=== PATIENT | female | born 1955 | race Caucasian/White ===

== ENCOUNTER 2018-12-03 10:11 | Observation (INO) | payer BC, OTHER ==
[2018-12-03] MEDS ORDERED: ALBUTEROL SO4 2.5/IPRATROPIUM 0.5 INH SOL 3 ML VIAL.NEB. NEB ONE ×4 (10:32→14:48)
--- NOTE | 2018-12-03 10:49 | PDOC ---
History of Present Illness - General Chief Complaint: Respiratory Distress Stated Complaint: ASTHMA Time Seen by Provider: 12/03/18 10:28 - History of Present Illness Initial Comments: 12/03/18 10:43 Patient is a 63 y/o female with a history of rheumatoid arthritis ( not on medication), asthma, and seasonal allergies who presents for cough and SOB. She started having a cough and a little bit of pain in her throat on . She also had a headache and a lot of sinus pressure. She describes it as a dry cough , She took ibuprofen but without relief. She denies any sick contacts. She was changing her cats litter box today before her shortness of breath worsened. She denies fevers, chills, nausea, vomiting, diarrhea, or chest pain. Patient has been menopausal for ten years. States her prednisone allergy causes her to have shortness of breath and trouble breathing. Past History - Past Medical History Allergies/Adverse Reactions: Allergies Allergy/AdvReac Type Severity Reaction Status Date / Time animal dander Allergy Verified 12/03/18 10:20 Penicillins Allergy Verified 12/03/18 10:20 prednisone Allergy Verified 12/03/18 10:20 Home Medications: Ambulatory Orders Albuterol Sulfate Inhaler - [Ventolin HFA Inhaler -] 1 - 2 inh PO Q4H PRN #1 inhaler 12/04/18 Methylprednisolone [Medrol Dose Foreign] 4 mg PO ASDIR #21 tablet 12/04/18 Montelukast Na [Singulair -] 10 mg PO HS #30 tablet 12/04/18 Cancer: Yes (breast 2004) - Suicide/Smoking/Psychosocial Hx Smoking History: Former smoker Have you smoked in the past 12 months: No If you are a former smoker, when did you quit?: 2006 Information on smoking cessation initiated: No Review of Systems - Review of Systems Constitutional: No: Chills, Fever Respiratory: Yes: Cough, Shortness of Breath Cardiac (ROS): No: Chest Pain ABD/GI: No: Constipated, Diarrhea, Nausea *Physical Exam - Vital Signs Last Vital Signs Temp Pulse Resp BP Pulse Ox 99 F 123 H 26 H 126/85 90 L 12/03/18 10:26 12/03/18 10:26 12/03/18 10:26 12/03/18 10:26 12/03/18 10:26 - Physical Exam Comments: 12/03/18 10:47 GENERAL: A& O x3, no acute distress HEART: RRR, no murmurs, rubs or gallops LUNGS: CTAL B/L, no accessory muscle use, no rhonchi, or rubs ABDMOEN: soft, non tender, non distended EXTEMITIES: no pitting edema SKIN: no ulcers or rashes noted ED Treatment Course - LABORATORY CBC & Chemistry Diagram: 12/04/18 07:00 12/04/18 07:00 - RADIOLOGY Radiology Studies Ordered: Category Date Time Status CHEST PA & LAT [RAD] Stat Radiology 12/03/18 10:40 Ordered Medical Decision Making - Medical Decision Making 12/03/18 10:55 f/u labs, CXR albuterol nebulizer treatment Wells score 1.5 low risk, f/u ddime, tachy at 118 12/03/18 13:29 CTA: no evidence of PE, symptomatically improved labs WNL likely asthma exacerbation 12/03/18 13:52 pulse 112, O2 93% another duonebs, Mg 1 gm, 1 L NS 40 kdur to replace K 12/03/18 15:51 pulse continues > 115, O2 93% still symptomatic, hypoxic *DC/Admit/Observation/Transfer Diagnosis at time of Disposition: Respiratory distress - Discharge Dispostion Disposition: HOME Condition at time of disposition: Stable Decision to Admit order: Yes - Referrals - Patient Instructions - Post Discharge Activity
[2018-12-03] MEDS ORDERED: SODIUM CHLORIDE 0.9% 1000 ML INFUS.BAG IV ONE (10:50)
[2018-12-03] MEDS ORDERED: ACETAMINOPHEN 325 MG TABLET (FP) PO ONE (10:52)
--- NOTE | 2018-12-03 11:12 | PDOC ---
Attending Attestation - HPI HPI: This patient is a 63 year old female, with PMHx of rheumatoid arthritis, asthma , seasonal and cat allergies, who presents with 2 days of cough, sinus pressure , itchy throat, and headache. Patient states that she has taken ibuprofen and marjorie seltzer without relief. Today she states that she changed her cats litter box and felt short of breath, with associated dry cough, sinus pressure and headache. Patient states that she took her albuterol inhaler which didn't help. She did not take anything for her seasonal allergies. Denies any fever, chills, nausea, vomiting, chest pain, nasal congestion. - Physicial Exam PE: GENERAL: Awake, alert, and fully oriented, in respiratory distress. HEAD: No signs of trauma EYES: PERRLA, EOMI, sclera anicteric, conjunctiva clear ENT: Auricles normal inspection, hearing grossly normal, nares patent, oropharynx clear without exudates. Moist mucosa NECK: Normal ROM, supple, no lymphadenopathy, JVD, or masses LUNGS: Conversational dyspnea. Hypoxic. Brochospastic cough. Clear to auscultation bilaterally. No wheezes, and no crackles HEART: Tachycardic, no murmurs, rubs or gallops. ABDOMEN: Soft, nontender, normoactive bowel sounds. No guarding, no rebound. No masses EXTREMITIES: Normal range of motion, no edema. No clubbing or cyanosis. No cords, erythema, or tenderness NEUROLOGICAL: Cranial nerves II through XII grossly intact. SKIN: Warm, Dry, normal turgor, no rashes or lesions noted. <Krista Singleton - Last Filed: 12/03/18 12:21> - Resident Resident Name: Nancy Argueta - ED Attending Attestation I have performed the following: I have examined & evaluated the patient, The case was reviewed & discussed with the resident, I agree w/resident's findings & plan, Exceptions are as noted - Critical Care Time Total Critical Care Time: 35 Critical Care Statement: The care of this patient involved high complexity decision making to prevent further life threatening deterioration of the patient 's condition and/or to evaluate & treat vital organ system(s) failure or risk of failure. - Medical Decision Making 12/03/18 11:11 I, Dr. Doretha Parry, DO, attest that this document has been prepared under my direction and personally reviewed by me in its entirety. I further attest, that it accurately reflects all work, treatment, procedures and medical decision -making performed by me. 12/03/18 11:37 a/p: 63yo female with sob and palpitations -cough x 2 days -has been in the hospital with her who is being treated for a bowel obstruction -no fevers -sinus congestion -pt arrives with conversational dyspnea, tachycardia -no leg swelling -no PE risk factors, but tachy and hypoxic to 90RA -started on a neb treatment prior to my eval -denies cp -will send labs, ekg, cxr, dimer -will monitor and reassess 12/03/18 11:49 cxr clear dimer elevated will obtain cta chest 12/03/18 13:01 flu negative 12/03/18 13:49 no PE on cta no pna 12/03/18 16:07 pt with persistent tachycardia and resp distress pt is allergic to prednisone case discussed with Dr. Munoz who accepts pt to service for obs <Doretha Parry - Last Filed: 12/03/18 16:13> Heart Score/ECG Review - ECG Intrepretation Comment:: 12/03/18 13:49 sinus tach at 111, nl axis, nl interval, no acute st/t wave findings <Doretha Parry - Last Filed: 12/03/18 16:13>
[2018-12-03 11:26] LABS: HEMATOCRIT 38.9 % (32.4-45.2); MCH 31.6 pg (25.7-33.7); MCHC 33.3 g/dl (32.0-36.0); MEAN CELL VOLUME 94.9 fl (80-96); MEAN PLT VOLUME 8.7 fl (7.5-11.1); PLATELET COUNT 231 K/MM3 (134-434); RDW 12.9 % (11.6-15.6); WHITE BLOOD COUNT 6.5 K/mm3 (4.0-10.0)
[2018-12-03] MEDS ORDERED: ACETAMINOPHEN 325 MG TABLET (FP) ONE (11:59)
[2018-12-03 12:07] LABS: ALBUMIN 4.1 g/dl (3.4-5.0); ALK PHOS 98 U/L (45-117); ANION GAP 10 MMOL/L (8-16); BILIRUBIN,TOTAL 0.3 mg/dL (0.2-1); BLOOD UREA NITROGEN 9 mg/dL (7-18); CALCIUM 8.6 mg/dL (8.5-10.1); CHLORIDE 103 mmol/L (98-107); CO2 28 mmol/L (21-32); CREATININE 0.5 mg/dL (0.55-1.3); GLUCOSE,RANDOM 127 mg/dL (74-106); POTASSIUM 3.2 mmol/L (3.5-5.1); SGOT/AST 47 U/L (15-37); SGPT/ALT 53 U/L (13-61); SODIUM 141 mmol/L (136-145)
[2018-12-03] MEDS ORDERED: POTASSIUM CHLORIDE TABS 20 MEQ TABLET.ER (FP) PO ONE (13:30)
[2018-12-03] MEDS ORDERED: POTASSIUM CHLORIDE ORAL LIQUID 20 MEQ/15 ML PO ONE (13:36)
[2018-12-03] MEDS ORDERED: SODIUM CHLORIDE 1,000 ML IV STA (13:50)
[2018-12-03] MEDS ORDERED: MAGNESIUM SULF 50% (8.12 MEQ/2 ML-1 GM VIAL) IVPB ONE (13:51)
[2018-12-03] MEDS ORDERED: MAGNESIUM 1GM/D5W - 1 GM/100 ML IVPB IVPB ONE (14:00)
[2018-12-03] MEDS ORDERED: POTASSIUM CHLORIDE ORAL LIQUID 20 MEQ/15 ML ONE (14:00)
[2018-12-03] MEDS ORDERED: methylPREDNISolone NA SUCC 125 MG/2 ML VIAL IVPUSH ONE (16:26)
[2018-12-03] MEDS ORDERED: ONDANSETRON 4 MG/2 ML VIAL IVPUSH PRN (16:31)
[2018-12-03] MEDS ORDERED: ALBUTEROL SO4 0.083% IH SOL 2.5 MG/3 ML VIAL.NEB. NEB PRN (16:35)
--- NOTE | 2018-12-03 16:36 | HP ---
CHIEF COMPLAINT: shortness of breath HISTORY OF PRESENT ILLNESS: 63 yof with PMhx of Mild asthma, last exacerbation in 2016, never intubated, seasonal allergies, allergic to cat/animal dander, though has a cat, Rheumatoid arthritis (Not on treatment, was on methotrexate years ago), Right Breast cancer 2004 s/p lumpectomy/radiation, in remission, has been having URI like symptoms for last 4-5 days with runny nose, sore throat, nasal congestion. Her is currently admitted in the hospital and feels might have had sick contacts in the hospital. No Influenza vaccination. Over the last 2 days, she has been getting progressively short of breath. Yesterday went out to clear cat litter box when her breathing got worse, was unable to catch her breath or sleep all night, so came to the ED. 12 point ROS done, neg for fevers, chills, sputum, chest pain, palpitations, orthopnea, PND, leg swelling, abdominal or urinary symptoms. s/p albuterol nebs, magnesium in the ED. Patient feels overall the same. Reports allergy to prednisone, when asked in detail, states was prescribed prednisone 7 years ago for asthma exacerbation, when took the prednisone, went for a shower when felt was unable to breathe and attributed it to the prednsione. Prior asthma exacerbations per patient, but does not know if has been treated with steroids. 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 lives with independent in ADLs Family History: Prostate Ca in father Allergies animal dander Allergy (Verified 12/03/18 10:20) Penicillins Allergy (Verified 12/03/18 10:20) prednisone Allergy (Verified 12/03/18 10:20) HOME MEDICATIONS: Home Medications Medication Instructions Recorded Albuterol Sulfate Inhaler - 1 - 2 inh PO Q4H PRN #1 inhaler 08/29/16 [Ventolin HFA Inhaler -] REVIEW OF SYSTEMS CONSTITUTIONAL: Present: loss of appetite Absent: fever, chills, diaphoresis, generalized weakness, malaise, weight change HEENT: Present: rhinorrhea, nasal congestion, throat pain, which is resolving now Absent: throat swelling, difficulty swallowing, mouth swelling, ear pain, eye pain, visual changes CARDIOVASCULAR: Absent: chest pain, syncope, palpitations, irregular heart rate, lightheadedness , peripheral edema RESPIRATORY: Present: cough, shortness of breath, wheezing Absent:dyspnea with exertion, orthopnea, stridor, hemoptysis GASTROINTESTINAL: Absent: abdominal pain, abdominal distension, nausea, vomiting, diarrhea, constipation, melena, hematochezia GENITOURINARY: Absent: dysuria, frequency, urgency, hesitancy, hematuria, flank pain, genital pain MUSCULOSKELETAL: Present: occasional arthlagia from her RA Absent: Joint swelling, back pain, neck pain SKIN: Absent: rash, itching, pallor HEMATOLOGIC/IMMUNOLOGIC: Absent: easy bleeding, easy bruising, lymphadenopathy, frequent infections ENDOCRINE: Absent: unexplained weight gain, unexplained weight loss, heat intolerance, cold intolerance NEUROLOGIC: Absent: headache, focal weakness or paresthesias, dizziness, unsteady gait, seizure, mental status changes, bladder or bowel incontinence PSYCHIATRIC: Absent: anxiety, depression, suicidal or homicidal ideation, hallucinations. PHYSICAL EXAMINATION Vital Signs - 24 hr 12/03/18 10:26 Temperature 99 F Pulse Rate 123 H Respiratory 26 H Rate Blood Pressure 126/85 O2 Sat by Pulse 90 L Oximetry (%) GENERAL: Awake, alert, mild respiratory distress, use of accessory muscles of respiration, need to catch her breath to finish her sentences HEAD: Normal with no signs of trauma. EYES: Pupils equal, round and reactive to light, extraocular movements intact, sclera anicteric, conjunctiva clear. No lid lag. EARS, NOSE, THROAT: Ears normal, nares patent, oropharynx clear without exudates. Moist mucous membranes. No pharyngeal erythema or discharge noted NECK: Normal range of motion, supple without lymphadenopathy, JVD, or masses. LUNGS: positive but decreased air entry all over, more in upper lung areas, no rales or wheezing appreciated HEART: S1S2 regular tachycardic ABDOMEN: Soft, nontender, not distended, normoactive bowel sounds, no guarding, no rebound, no masses. MUSCULOSKELETAL: Normal range of motion at all joints. No bony deformities or tenderness. No CVA tenderness. UPPER EXTREMITIES: 2+ pulses, warm, well-perfused. No cyanosis. No clubbing. No peripheral edema. LOWER EXTREMITIES: 2+ pulses, warm, well-perfused. No calf tenderness. No peripheral edema. NEUROLOGICAL: AAOX3, facial symmetry, power 5/5, sensation intact, Cranial nerves II-XII intact. Normal speech. Gait not observed PSYCHIATRIC: Cooperative. Good eye contact. Appropriate mood and affect. SKIN: Warm, dry, normal turgor, no rashes or lesions noted, normal capillary refill. Laboratory Results - last 24 hr 12/03/18 12/03/18 12/03/18 11:02 11:02 11:02 WBC 6.5 RBC 4.10 Hgb 13.0 Hct 38.9 MCV 94.9 MCH 31.6 MCHC 33.3 RDW 12.9 Plt Count 231 MPV 8.7 D-Dimer 1120 H Sodium 141 Potassium 3.2 L Chloride 103 Carbon Dioxide 28 Anion Gap 10 BUN 9 Creatinine 0.5 L Creat Clearance w eGFR 125.02 Random Glucose 127 H Calcium 8.6 Total Bilirubin 0.3 AST 47 H ALT 53 Alkaline Phosphatase 98 Troponin I < 0.02 Total Protein 8.0 Albumin 4.1 Influenza A (Rapid) Influenza B (Rapid) 12/03/18 12/03/18 11:22 15:20 WBC RBC Hgb Hct MCV MCH MCHC RDW Plt Count MPV D-Dimer Sodium Potassium Chloride Carbon Dioxide Anion Gap BUN Creatinine Creat Clearance w eGFR Random Glucose Calcium Total Bilirubin AST ALT Alkaline Phosphatase Troponin I < 0.02 Total Protein Albumin Influenza A (Rapid) Negative Influenza B (Rapid) Negative CTA chest: FINDINGS: There is no acute pulmonary emboli. There is no hilar, mediastinal or axillary lymphadenopathy. There is no pleural or pericardial effusion. There is pleural thickening and chronic changes right upper lung field There is no thoracic aortic aneurysm. There are no infiltrates, pulmonary masses or nodules. There are no adrenal masses. IMPRESSION: No evidence of acute pulmonary emboli. CXR; There are no prior studies for comparison. There are clear and hyperaerated lungs, normal mediastinum sharp angles. The bones and soft tissues are intact. Impression: No acute chest pathology. EKG sinus tachycardia 110s, no acute ST-T changes ASSESSMENT/PLAN: 63 yof with PMhx of Mild asthma, last exacerbation in 2016, never intubated, seasonal allergies, allergic to cat/animal dander, though has a cat, Rheumatoid arthritis (Not on treatment, was on methotrexate years ago), Right Breast cancer 2003 s/p lumpectomy/radiation, in remission admitted with acute asthma exacerbation in the setting of recent URI and cat litter exposure -Acute asthma exacerbation in the setting of recent URI/Cat litter exposure -Sinus tachycardia, from above/nebs -Hypokalemia -Seasonal and cat/animal dander allergies -RA not on treatment -Right Breast Cancer 2003 s/p lumpectomy/radiation Plan: Multiple nebs and Mg in ED with minimal improvement, ongoing bronchospasm, respiratory distress and decreased air entry. Reports allergy to prednisone, when asked in detail, states was prescribed prednisone 7 years ago for asthma exacerbation, when took the prednisone, went for a shower when felt was unable to breathe and attributed it to the prednsione. Discussed that her symptoms could be from asthma rather than the medication. She is unsure if has been on steroids for her prior exacerbation. Agreable to trial with solumedrol IV with close monitoring. Solumedrol IV x 1 for now. Additional taper based on clinical course. Azithromycin. Standing and prn albuterol. Start singulair. Patient has been advised to avoid direct cat exposure in the past. 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 DVTPPX lovenox Dispo admit to obs. D/c in 24-48 hours if improves. Plan discussed with patient in detail, all questions answered. total admit time spent 55 min . Visit type - Emergency Visit Emergency Visit: Yes Care time: The patient presented to the Emergency Department on the above date and was hospitalized for further evaluation of their emergent condition. - New Patient This patient is new to me today: Yes Date on this admission: 12/03/18 - Critical Care Critical Care patient: No
[2018-12-03] MEDS ORDERED: methylPREDNISolone NA SUCC 125 MG/2 ML VIAL ONE (17:08)
[2018-12-03] MEDS ORDERED: AZITHROMYCIN 250 MG TABLET ONE (17:09)
[2018-12-03] MEDS: SODIUM CHLORIDE 1,000 ML IV SCH (17:17)
[2018-12-03] MEDS: AZITHROMYCIN 500 MG TABLET PO SCH (17:17)
[2018-12-03] MEDS ORDERED: MONTELUKAST NA 10 MG TABLET PO SCH (22:00)
[2018-12-03] MEDS ORDERED: MONTELUKAST NA 10 MG TABLET ONE (23:34)
[2018-12-03] MEDS ORDERED: ALBUTEROL SO4 0.083% IH SOL 2.5 MG/3 ML VIAL.NEB. NEB ONE (23:34)
[2018-12-03] MEDS: ALBUTEROL SO4 0.083% IH SOL 2.5 MG/3 ML VIAL.NEB. NEB SCH (23:48)
[2018-12-04 03:50] VITALS: BMI 21.9
[2018-12-04] MEDS: SODIUM CHLORIDE 1,000 ML IV SCH (04:00)
[2018-12-04] MEDS ORDERED: ACETAMINOPHEN 325 MG TABLET (FP) PO ONE (06:44)
[2018-12-04] MEDS: ALBUTEROL SO4 0.083% IH SOL 2.5 MG/3 ML VIAL.NEB. NEB SCH ×2 (07:33→11:40)
[2018-12-04 08:22] LABS: BASO % 0.3 % (0-2.0); HEMATOCRIT 33.9 % (32.4-45.2); HEMOGLOBIN 11.3 GM/dL (10.7-15.3); MCH 31.8 pg (25.7-33.7); MCHC 33.3 g/dl (32.0-36.0); MEAN CELL VOLUME 95.5 fl (80-96); MONO % 11.2 % (3.8-10.2); NEUT % 76.5 % (42.8-82.8); PLATELET COUNT 190 K/MM3 (134-434); RBC 3.55 M/mm3 (3.60-5.2); RDW 13.3 % (11.6-15.6); WHITE BLOOD COUNT 4.9 K/mm3 (4.0-10.0)
[2018-12-04 09:09] LABS: ANION GAP 9 MMOL/L (8-16); BLOOD UREA NITROGEN 9 mg/dL (7-18); CALCIUM 8.5 mg/dL (8.5-10.1); CHLORIDE 108 mmol/L (98-107); CO2 25 mmol/L (21-32); CREATININE 0.5 mg/dL (0.55-1.3); GLUCOSE,RANDOM 99 mg/dL (74-106); MAGNESIUM 2.3 mg/dL (1.8-2.4); PHOSPHOROUS 2.9 mg/dL (2.5-4.9); POTASSIUM 4.3 mmol/L (3.5-5.1); SODIUM 141 mmol/L (136-145)
[2018-12-04] MEDS ORDERED: PT OWN MED DRAWER 7, Y5N ONE (09:29)
[2018-12-04] MEDS ORDERED: ENOXAPARIN NA (PORCINE) 40 MG/0.4 ML DISP.SYRIN SQ SCH (10:00)
[2018-12-04 10:13] VITALS: PULSE 101
[2018-12-04] MEDS ORDERED: methylPREDNISolone NA SUCC 40 MG/1 ML VIAL IVPUSH ONE ×2 (10:19→11:15)
[2018-12-04] MEDS: AZITHROMYCIN 500 MG TABLET PO SCH (10:20)
--- NOTE | 2018-12-04 11:18 | DS ---
Physical Exam: SUBJECTIVE: Patient seen and examined OBJECTIVE: Vital Signs Period Temp Pulse Resp BP Sys/Bennett Pulse Ox Last 24 Hr 98.3 F-99.0 F 69-101 16-20 98-134/54-87 96-98 PHYSICAL EXAM GENERAL: Awake, alert, mild respiratory distress, use of accessory muscles of respiration, need to catch her breath to finish her sentences HEAD: Normal with no signs of trauma. EYES: Pupils equal, round and reactive to light, extraocular movements intact, sclera anicteric, conjunctiva clear. No lid lag. EARS, NOSE, THROAT: Ears normal, nares patent, oropharynx clear without exudates. Moist mucous membranes. No pharyngeal erythema or discharge noted NECK: Normal range of motion, supple without lymphadenopathy, JVD, or masses. LUNGS: CTAB, markedly improved air entry, no rales or wheezing today HEART: S1S2 regular tachycardic ABDOMEN: Soft, nontender, not distended, normoactive bowel sounds, no guarding, no rebound, no masses. MUSCULOSKELETAL: Normal range of motion at all joints. No bony deformities or tenderness. No CVA tenderness. UPPER EXTREMITIES: 2+ pulses, warm, well-perfused. No cyanosis. No clubbing. No peripheral edema. LOWER EXTREMITIES: 2+ pulses, warm, well-perfused. No calf tenderness. No peripheral edema. NEUROLOGICAL: AAOX3, facial symmetry, power 5/5, sensation intact, Cranial nerves II-XII intact. Normal speech. Gait not observed PSYCHIATRIC: Cooperative. Good eye contact. Appropriate mood and affect. SKIN: Warm, dry, normal turgor, no rashes or lesions noted, normal capillary refill. LABS Laboratory Results - last 24 hr 12/03/18 12/03/18 12/03/18 11:02 11:02 11:02 WBC 6.5 RBC 4.10 Hgb 13.0 Hct 38.9 MCV 94.9 MCH 31.6 MCHC 33.3 RDW 12.9 Plt Count 231 MPV 8.7 Absolute Neuts (auto) Neutrophils % Lymphocytes % Monocytes % Eosinophils % Basophils % Nucleated RBC % D-Dimer 1120 H Sodium 141 Potassium 3.2 L Chloride 103 Carbon Dioxide 28 Anion Gap 10 BUN 9 Creatinine 0.5 L Creat Clearance w eGFR 125.02 POC Glucometer Random Glucose 127 H Calcium 8.6 Phosphorus Magnesium Total Bilirubin 0.3 AST 47 H ALT 53 Alkaline Phosphatase 98 Troponin I < 0.02 Total Protein 8.0 Albumin 4.1 TSH Influenza A (Rapid) Influenza B (Rapid) 12/03/18 12/03/18 12/04/18 11:22 15:20 05:49 WBC RBC Hgb Hct MCV MCH MCHC RDW Plt Count MPV Absolute Neuts (auto) Neutrophils % Lymphocytes % Monocytes % Eosinophils % Basophils % Nucleated RBC % D-Dimer Sodium Potassium Chloride Carbon Dioxide Anion Gap BUN Creatinine Creat Clearance w eGFR POC Glucometer 238 Random Glucose Calcium Phosphorus Magnesium Total Bilirubin AST ALT Alkaline Phosphatase Troponin I < 0.02 Total Protein Albumin TSH Influenza A (Rapid) Negative Influenza B (Rapid) Negative 12/04/18 12/04/18 07:00 07:00 WBC 4.9 RBC 3.55 L Hgb 11.3 Hct 33.9 MCV 95.5 MCH 31.8 MCHC 33.3 RDW 13.3 Plt Count 190 MPV 9.0 Absolute Neuts (auto) 3.7 Neutrophils % 76.5 Lymphocytes % 12.0 Monocytes % 11.2 H Eosinophils % 0.0 Basophils % 0.3 Nucleated RBC % 0 D-Dimer Sodium 141 Potassium 4.3 Chloride 108 H Carbon Dioxide 25 Anion Gap 9 BUN 9 Creatinine 0.5 L Creat Clearance w eGFR 125.02 POC Glucometer Random Glucose 99 Calcium 8.5 Phosphorus 2.9 Magnesium 2.3 Total Bilirubin AST ALT Alkaline Phosphatase Troponin I Total Protein Albumin TSH 0.94 Influenza A (Rapid) Influenza B (Rapid) HOSPITAL COURSE: Date of Admission:12/03/18 Date of Discharge: 12/04/18 Minutes to complete discharge: 35 Discharge Summary Reason For Visit: RESPIRATORY DISTRESS,HYPOXIA Current Active Problems Respiratory distress (Acute) Hospital Course: 63 yof with PMhx of Mild asthma, last exacerbation in 2016, never intubated, seasonal allergies, allergic to cat/animal dander, though has a cat, Rheumatoid arthritis (Not on treatment, was on methotrexate years ago), Right Breast cancer 2004 s/p lumpectomy/radiation, in remission, admitted with asthma exacerbation in the setting of recent viral illness and direct cat litter box exposure. She reported allergy to prednisone, stated was given prednisone 7 years ago for asthma exacerbation, took the medication and went for shower when had worsening dsypnea and attributed the same to prednisone. She receive IV solumedrol in the hospital with marked improvement in her symptoms and no concerns. She was started in singulair, azithromycin and nebs. She improved rapidly with no oxygen needs or wheezing on discharge. She is strongly advised to avoid direct exposure to cats and follow up with assistant foreman. She will be discharged on medrol dose pack. Condition: Stable - Instructions Diet, Activity, Other Instructions: You were admitted with asthma exacerbation in the setting recent viral infection and cat litter exposure You received solumedrol injection during your stay with improvement in your symptoms. MEDICATIONS: Medrol dose pack, per instructions on the pack Singulair 10 mg at bedtime Albuterol inhaler every 4 hours as needed FOLLOW UP: With primary care physician in 1 week You are strongly advised outpatient follow up with Promotions Team Leader and to avoid direct cat exposure. If you notice any new fevers, chills, trouble breathing or any new concerns, please call 911 or come to the ED. Referrals: Johnathan Mac MD [Staff Physician] - Disposition: HOME - Home Medications Comprehensive Discharge Medication List: Ambulatory Orders Albuterol Sulfate Inhaler - [Ventolin HFA Inhaler -] 1 - 2 inh PO Q4H PRN #1 inhaler 12/04/18 Methylprednisolone [Medrol Dose Foreign] 4 mg PO ASDIR #21 tablet 12/04/18 Montelukast Na [Singulair -] 10 mg PO HS #30 tablet 12/04/18 This patient is new to me today: No Emergency Visit: Yes ED Registration Date: 12/03/18 Care time: The patient presented to the Emergency Department on the above date and was hospitalized for further evaluation of their emergent condition. Critical Care patient: No - Discharge Referral Referred to [facility] No
[2018-12-04 12:12] VITALS: BP 107/66; TEMP 98.1
--- NOTE | 2018-12-05 10:19 | EKG ---
Test Reason : Blood Pressure : / mmHG Vent. Rate : 111 BPM Atrial Rate : 111 BPM P-R Int : 140 ms QRS Dur : 078 ms QT Int : 332 ms P-R-T Axes : 088 079 070 degrees QTc Int : 451 ms SINUS TACHYCARDIA OTHERWISE NORMAL ECG NO PREVIOUS ECGS AVAILABLE Confirmed by KALEB BUCKLEY MD ([id number]) on 12/05/2018 10:19:07 AM Referred By: Confirmed By:KALEB BUCKLEY MD
== END 2018-12-04 14:42 | disposition home or self-care (01) ==
LOC: JER 10:11 → JERBED 15:55 → J6S 12-04 03:07
PROVIDERS: ADMIT Hospitalist; ATTEND Hospitalist
PROC: 3E0333Z Introduction of Anti-inflammatory into Peripheral Vein, Percutaneous Approach (ICD-10-PCS; principal; 2018-12-03)
PROC: 3E0337Z Introduction of Electrolytic and Water Balance Substance into Peripheral Vein, Percutaneous Approach (ICD-10-PCS; 2018-12-03)
PROC: 3E033GC Introduction of Other Therapeutic Substance into Peripheral Vein, Percutaneous Approach (ICD-10-PCS; 2018-12-03)
PROC: 3E0F7GC Introduction of Other Therapeutic Substance into Respiratory Tract, Via Natural or Artificial Opening (ICD-10-PCS; 2018-12-03)
DX: J45.901 Unspecified asthma with (acute) exacerbation (principal); R06.03 Acute respiratory distress; R09.02 Hypoxemia; R00.0 Tachycardia, unspecified; E87.6 Hypokalemia; J30.81 Allergic rhinitis due to animal (cat) (dog) hair and dander; J30.2 Other seasonal allergic rhinitis; Z85.3 Personal history of malignant neoplasm of breast; Z87.891 Personal history of nicotine dependence; Z88.0 Allergy status to penicillin; Z88.8 Allergy status to other drugs, medicaments and biological substances
CPT/HCPCS: 36415; 71046-TC-FY; 71275-TC; 80048; 80053; 82962; 83735; 84100; 84443; 84484; 85025; 85027; 85379; 87804; 93005; 93010; 94640; 94761; 99285-25; G0378; J7030